=== PATIENT | female | born 1970 ===

== ENCOUNTER 2017-05-26 10:48 | Emergency (ER) | payer OTHER ==
[2017-05-26 10:53] VITALS: O2SAT 100; BMI 25.4
--- NOTE | 2017-05-26 11:30 | C.PDOC ---
History Of Present Illness 46 year old female who presents to the ER with a complaint of a rash to the feet that has spread to the mid thigh and from the hands to the proximal elbow that began approximately 9 days ago. Patient states she was in [facility] helping a friend clean a house but states she as not outside or around any plants and denies any insect bites. Patient is compliant with her htcz HTN medication and reports her FHx is positive for her sister having protein c deficiency. Patient notes the rash is not itchy or painful; denies fever, chills , recent changes in medication, new lotions/topical creams, difficulty breathing , or difficulty swallowing. Time Seen by Provider: 05/26/17 10:56 Chief Complaint (Nursing): Abnormal Skin Integrity History Per: Patient History/Exam Limitations: no limitations Onset/Duration Of Symptoms: Days Current Symptoms Are (Timing): Still Present Location Of Injury: Right: Foot, Forearm, Hand, Leg, Thigh, Left: Foot, Forearm , Hand, Leg, Thigh Quality Of Symptoms: denies: Painful, Itching Recent travel outside of the [place]: No Past Medical History Reviewed: Historical Data, Nursing Documentation, Vital Signs Vital Signs: Last Vital Signs Temp 98.0 F 05/26/17 10:53 Pulse 93 H 05/26/17 10:53 Resp 18 05/26/17 10:53 BP 128/87 05/26/17 10:53 Pulse Ox 100 05/26/17 11:48 - Medical History PMH: Anemia, HTN Surgical History: No Surg Hx - [facility] Procedures URETERAL CATHETERIZATION (11/29/14) URETEROSCOPY (11/29/14) Family History: States: Unknown Family Hx - Social History Hx Alcohol Use: No Hx Substance Use: No - Immunization History Hx Tetanus Toxoid Vaccination: No Hx Influenza Vaccination: No Hx Pneumococcal Vaccination: No Review Of Systems Constitutional: Negative for: Fever, Chills ENT: Negative for: Throat Pain, Throat Swelling Skin: Positive for: Rash Physical Exam - Physical Exam Appears: Non-toxic Skin: Warm, Dry, Rash (Nonblanching, red, pale, patches from 1-2mm to 6mm in size scattered from toes to mid thigh and from dorsum of hand to anterior arm up to distal humerus area; with exception of anterior forearm mostly flat; spares palms and soles) Head: Atraumatic, Normacephalic Oral Mucosa: Moist Throat: Normal, No Other (Swelling) Chest: Symmetrical, No Tenderness Cardiovascular: Rhythm Regular, No Murmur Respiratory: Normal Breath Sounds, No Stridor, No Wheezing Extremity: Normal ROM (x4), No Tenderness, No Swelling Neurological/Psych: Oriented x3, Normal Speech, Normal Cognition ED Course And Treatment - Laboratory Results Result Diagrams: 05/26/17 11:28 05/26/17 11:28 O2 Sat by Pulse Oximetry: 100 (Room air) Pulse Ox Interpretation: Normal Medical Decision Making Medical Decision Making: Plan: * Blood work Consideration for possible purpura, will check labs. 1240 pm pt not anemic, normal plts and coags, microcytic cells. will d/c with referral to derm, hematology and pmd for further outpatient workup. pt with uti symptoms now, will d/c with macrobid Disposition Counseled Patient/Family Regarding: Studies Performed, Diagnosis, Need For Followup, Rx Given - Disposition Referrals: Carson Frank MD [Staff Provider] - [facility] [Outside] [facility] [Outside] Disposition: HOME/ ROUTINE Disposition Time: 12:44 Condition: STABLE Additional Instructions: Por favor, siga con sharma pmd, o en la clnica mdica, dermatlogo (geoff lista de nombres) y con hematlogo. [place] antibiticos para la infeccin de orina. Regrese a ER para cualquier empeoramiento de los sntomas. Prescriptions: Hydrochlorothiazide [Microzide] 12.5 mg PO DAILY #15 cap Nitrofurantoin Macrocrystals [Macrobid] 100 mg PO BID #14 cap Instructions: Acute Rash (ED), Urinary Tract Infection in Women (ED) Forms: General Discharge Instructions, Gen Discharge Inst Slovenian - Clinical Impression Clinical Impression: Rash and nonspecific skin eruption, UTI (urinary tract infection) - Scribe Statement The provider has reviewed the documentation as recorded by the Scribe Tacos White All medical record entries made by the Scribe were at my direction and personally dictated by me. I have reviewed the chart and agree that the record accurately reflects my personal performance of the history, physical exam, medical decision making, and the department course for this patient. I have also personally directed, reviewed, and agree with the discharge instructions and disposition.
[2017-05-26 11:33] LABS: BASO % 0.5 % (0.0-2.0); EOS # 0.1 K/uL (0.0-0.7); EOS % 0.9 % (0.0-4.0); HEMATOCRIT 37.1 % (34.0-47.0); LYMPH # 2.6 K/uL (1.0-4.3); LYMPH % 33.1 % (20.0-40.0); MEAN CELL VOLUME 60.2 fL (81.0-99.0); MEAN CORPUSCULAR HEMOGLOBIN 19.6 pg (27.0-31.0); MEAN CORPUSCULAR HGB CONC 32.6 g/dL (33.0-37.0); MEAN PLATELET VOLUME 8.9 fL (7.2-11.7); MONO # 0.4 K/uL (0.0-0.8); MONO % 5.7 % (0.0-10.0); NRBC % 0.1 % (0.0-2.0); RED CELL DISTRIBUTION WIDTH 15.5 % (11.5-14.5); WHITE BLOOD COUNT 7.7 K/uL (4.8-10.8)
[2017-05-26 11:42] LABS: RBC URINE 1 /hpf (0-3); URINE BACTERIA FEW (<OCC); URINE BILIRUBIN NEGATIVE (NEGATIVE); URINE BLOOD 1+ (NEGATIVE); URINE COLOR Yellow (YELLOW); URINE GLUCOSE (UA) NORMAL (Normal); URINE KETONE NEGATIVE (NEGATIVE); URINE LEUKOCYTE ESTERASE TRACE Leu/uL (Negative); URINE PROTEIN NEGATIVE (NEGATIVE); URINE UROBILINOGEN NORMAL mg/dL (0.2-1.0); WBC URINE 6 /hpf (0-5)
[2017-05-26 11:46] LABS: CHLORIDE 104 mmol/L (98-107); SODIUM 143 mmol/L (132-148)
[2017-05-26 11:48] LABS: GFR AFRICAN-AMERICAN > 60
[2017-05-26 11:49] LABS: ALB/GLOB RATIO 1.3 (1.0-2.1); ALKALINE PHOSPHATASE 80 U/L (38-126); ALT/SGPT 27 U/L (9-52); AST/SGOT 18 U/L (14-36); BILIRUBIN,TOTAL 1.2 mg/dL (0.2-1.3); BLOOD UREA NITROGEN 15 mg/dL (7-17); CARBON DIOXIDE 25 mmol/L (22-30); GLUCOSE,RANDOM 100 mg/dL (65-105); TOTAL PROTEIN 7.8 g/dL (6.3-8.3)
[2017-05-26 13:04] VITALS: BP 127/85; PULSE 77; RESP 20; TEMP 97.9
== END 2017-05-26 13:04 | disposition home or self-care (01) ==
LOC: C.ER 10:48
DX: R21 Rash and other nonspecific skin eruption (principal); N39.0 Urinary tract infection, site not specified

== ENCOUNTER 2017-11-22 13:00 | Emergency (ER) | payer OTHER ==
[2017-11-22 13:01] VITALS: BMI 25.4
[2017-11-22 13:12] VITALS: BP 147/97; PULSE 84; RESP 18; TEMP 97.8; O2SAT 100
[2017-11-22 13:42] LABS: SQUAMOUS EPITHIAL 1 /hpf (0-5); URINE BACTERIA RARE (<OCC); URINE BILIRUBIN NEGATIVE (NEGATIVE); URINE BLOOD NEGATIVE (NEGATIVE); URINE CLARITY Clear (Clear); URINE COLOR Straw (YELLOW); URINE GLUCOSE (UA) NORMAL (Normal); URINE LEUKOCYTE ESTERASE NEG Leu/uL (Negative); URINE NITRATE POSITIVE (NEGATIVE); URINE PROTEIN NEGATIVE (NEGATIVE); URINE UROBILINOGEN NORMAL mg/dL (0.2-1.0)
--- NOTE | 2017-11-22 15:35 | C.PDOC ---
History Of Present Illness 47 yr old female presents to the ER with complaints of dysuria. Patient denies fever, chills, nausea, vomiting, abdominal pain, hematuria, blood in stool, weakness or numbness. Time Seen by Provider: 11/22/17 13:57 Chief Complaint (Nursing): Female Genitourinary History Per: Patient History/Exam Limitations: no limitations Onset/Duration Of Symptoms: Days Past Medical History Reviewed: Historical Data, Nursing Documentation, Vital Signs Vital Signs: Last Vital Signs Temp 97.8 F 11/22/17 13:12 Pulse 84 11/22/17 13:12 Resp 18 11/22/17 13:12 BP 147/97 H 11/22/17 13:12 Pulse Ox 100 11/22/17 15:36 - Medical History PMH: Anemia, HTN - [facility] Procedures URETERAL CATHETERIZATION (11/29/14) URETEROSCOPY (11/29/14) Family History: States: No Known Family Hx - Social History Hx Alcohol Use: No Hx Substance Use: No - Immunization History Hx Tetanus Toxoid Vaccination: No Hx Influenza Vaccination: No Hx Pneumococcal Vaccination: No Review Of Systems Except As Marked, All Systems Reviewed And Found Negative. Constitutional: Negative for: Fever, Chills Gastrointestinal: Negative for: Nausea, Vomiting, Abdominal Pain Genitourinary: Positive for: Dysuria. Negative for: Hematuria Neurological: Negative for: Weakness, Numbness Physical Exam - Physical Exam Appears: Non-toxic, No Acute Distress Skin: Warm, Dry, No Rash Eye(s): bilateral: Normal Inspection, PERRL, EOMI Oral Mucosa: Moist Respiratory: Normal Breath Sounds, No Rales, No Rhonchi, No Stridor, No Wheezing Gastrointestinal/Abdominal: Normal Exam, Soft, No Tenderness, No Guarding, No Rebound Extremity: Normal ROM, No Swelling Neurological/Psych: Oriented x3, Normal Speech ED Course And Treatment O2 Sat by Pulse Oximetry: 100 (RA) Pulse Ox Interpretation: Normal Medical Decision Making Medical Decision Making: PLAN: * Urinalysis Disposition - Disposition Referrals: [facility] [Outside] [facility] [Outside] Disposition: HOME/ ROUTINE Disposition Time: 14:10 Condition: GOOD Additional Instructions: Thank you for letting us take care of you today. The emergency medical care you received today was directed at your acute symptoms. If you were prescribed any medication, please fill it and take as directed. It may take several days for your symptoms to resolve. Return to the Emergency Department if your symptoms worsen, do not improve, or if you have any other problems. Please contact your doctor or call one of the physicians/clinics you have been referred to that are listed on the Patient Visit Information form that is included in your discharge packet. Bring any paperwork you were given at discharge with you along with any medications you are taking to your follow up visit. Our treatment cannot replace ongoing medical care by a primary care provider (PCP) outside of the emergency department. Thank you for allowing the [facility] team to be part of your care today. Follow up with the clinic in 3-4 days for re-evaluation and further management. Rodney por dejarnos atenderlo hoy. La atencin mdica de emergencia que recibi hoy estaba dirigida a kavitha sntomas agudos. Si le prescribieron algn medicamento, llnelo y tome segn las indicaciones. Kavitha sntomas pueden tardar varios hollingsworth en resolverse. Regrese al Departamento de Emergencia si kavitha s ntomas empeoran, no mejoran o si tiene algn otro problema. Comunquese con sharma mdico o llame a zully de los mdicos / clnicas a los que quiles sido referido que figura en el formulario de Informacin de visita del paciente que se incluye en sharma paquete de alexandru. Traiga todos los documentos que recibi al momento del alexandru junto con los medicamentos que est tomando en sharma visita de seguimiento. Nuestro tratamiento no puede reemplazar la atencin mdica en curso por parte de un proveedor de atencin primaria (PCP) fuera del departamento de emergencias. Rodney por permitir que el equipo de [facility] sea parte de sharma cuidado hoy. Maggy un seguimiento con la clnica en 3-4 hollingsworth para naren nueva evaluacin y ms administracin. Prescriptions: Ibuprofen [Motrin] 600 mg PO Q6 PRN #20 tab PRN Reason: Pain, Moderate (4-7) Nitrofurantoin Macrocrystals [Macrobid] 100 mg PO BID #10 cap Instructions: Urinary Tract Infection in Women (ED) Forms: Gen Discharge Inst Nigerien Print Language: CYMRAES - Clinical Impression Clinical Impression: UTI (urinary tract infection) - Scribe Statement The provider has reviewed the documentation as recorded by the Tobiasibkade Winter Provider Attestation: All medical record entries made by the Petey were at my direction and personally dictated by me. I have reviewed the chart and agree that the record accurately reflects my personal performance of the history, physical exam, medical decision making, and the department course for this patient. I have also personally directed, reviewed, and agree with the discharge instructions and disposition.
== END 2017-11-22 14:36 | disposition home or self-care (01) ==
LOC: C.ER 13:00
DX: N39.0 Urinary tract infection, site not specified (principal); I10 Essential (primary) hypertension

== ENCOUNTER 2019-03-10 11:54 | Outpatient (CLI) | payer MEDICAID | END 2019-03-10 11:55 | disposition home or self-care (01) | LOC: C.MAMMO 11:54 | DX: Z12.31 Encounter for screening mammogram for malignant neoplasm of breast (principal) ==